=== PATIENT | female | born 1965 | race Caucasian/White ===

== ENCOUNTER 2019-03-25 14:55 | Emergency (ER) | payer OTHER ==
[2019-03-25 15:06] VITALS: TEMP 98.8; BMI 27.4
--- NOTE | 2019-03-25 15:09 | PDOC ---
History of Present Illness <Glory Hernandez - Last Filed: 03/25/19 17:01> - General History Source: Patient Exam Limitations: No Limitations - History of Present Illness Initial Comments: Pt is a 53 yo F, with no significant PMH, who presents with complaints of persistent epigastric discomfort. Pt states she frequently gets this symptom every few months, which is normally improved after relief of her constipation. These symptoms began with menopause, but is concerned "she may be having a heart attack". Pt does endorse drinking coffee more than usual lately. She states her constipation is improving and that her BMs are becoming softer. PT denies any fevers/chills, headache, vision changes, syncope, chest pain, palpitations, SOB, nausea/vomiting, urinary symptoms, or leg swelling. Allergies: NKDA PCP: Juliet (pt has appointment in 3 days with PCP). Social: Pt denies any cigarette, alcohol, or drug use. Pt denies any recent travel or sick contacts. 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 Family: no relevant history. 03/25/19 16:52 <Maddy Conley - Last Filed: 03/25/19 18:28> - General Chief Complaint: Chest Pain Stated Complaint: CHEST TIGHTNESS, CONSTIPATION Time Seen by Provider: 03/25/19 14:59 Past History <Glory Hernandez - Last Filed: 03/25/19 17:01> - Travel Traveled outside of the country in the last 30 days: No Close contact w/someone who was outside of country & ill: No - Past Medical History COPD: No - Suicide/Smoking/Psychosocial Hx Smoking History: Never smoked Have you smoked in the past 12 months: No Information on smoking cessation initiated: No Hx Alcohol Use: No <Maddy Conley - Last Filed: 03/25/19 18:28> - Past Medical History Allergies/Adverse Reactions: Allergies Allergy/AdvReac Type Severity Reaction Status Date / Time No Known Drug Allergies Allergy Verified 03/25/19 15:03 lactose AdvReac Verified 03/25/19 16:14 Home Medications: Ambulatory Orders NK [No Known Home Medication] 03/25/19 Review of Systems - Review of Systems Able to Perform ROS?: Yes Is the patient limited Vietnamese proficient: No Constitutional: Yes: Weight Stable. No: Chills, Diaphoresis, Fever, Loss of Appetite, Malaise, Weakness HEENTM: No: Blurred Vision, Double Vision, Nose Congestion, Throat Pain, Throat Swelling, Difficulty Swallowing Respiratory: No: Cough, Orthopnea, Shortness of Breath Cardiac (ROS): No: Chest Pain, Edema, Irregular Heart Rate, Lightheadedness, Palpitations, Syncope, Chest Tightness ABD/GI: Yes: See HPI, Constipated, Abdominal cramping (epigastric "tightness"). No: Diarrhea, Nausea, Poor Appetite, Poor Fluid Intake, Vomiting, Indigestion : No: Burning, Dysuria, Frequency, Hematuria, Pain, Urgency Musculoskeletal: No: Back Pain, Joint Pain, Muscle Pain, Muscle Weakness Integumentary: No: Bruising, Rash Neurological: No: Headache, Numbness, Paresthesia, Weakness, Unsteady Gait, Dizziness Psychiatric: Yes: Other (on vacation, has been consuming more coffee than usual) . No: Sleep Pattern Change, Change in Appetite Endocrine: No: Increased Urine, Change in Weight Hematologic/Lymphatic: No: Anemia, Blood Clots, Easy Bleeding, Easy Bruising All Other Systems: Reviewed and Negative <Maddy Conley - Last Filed: 03/25/19 18:28> *Physical Exam - Vital Signs Last Vital Signs Temp Pulse Resp BP Pulse Ox 98.8 F 112 H 20 130/82 100 03/25/19 14:55 03/25/19 14:55 03/25/19 14:55 03/25/19 14:55 03/25/19 14:55 <Glory Hernandez - Last Filed: 03/25/19 17:01> - Vital Signs Last Vital Signs Temp Pulse Resp BP Pulse Ox 98.8 F 112 H 20 130/82 100 03/25/19 14:55 03/25/19 14:55 03/25/19 14:55 03/25/19 14:55 03/25/19 14:55 - Physical Exam Comments: Pt not tachycardic on exam (80s-90s), pt afebrile. Pt in NAD, but very anxious with pressured speech. Normal body habitus. Pt alert and oriented x3. 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 No midline spinal tenderness, step-offs, or crepitus. Head normocephalic, atraumatic. Eyes PERRLA, EOMI. Oropharynx without erythema or exudates, no LAD b/l. No nasal congestion, hearing intact. Clear heart sounds, S1/S2, no JVD, b/l pedal edema, or heart murmur. Clear lung sounds, no respiratory distress, wheezes, crackles, or accessory muscle use. No abdominal or CVA tenderness to palpation, no rebound, no guarding. Abdomen soft, non-distended, and with normoactive bowel sounds. Skin without jaundice or rash. 03/25/19 16:02 <Maddy Conley - Last Filed: 03/25/19 18:28> Heart Score/ECG Review - History History: Slightly suspicious - Electrocardiogram EKG: Normal - Age Age: 45-65 - Risk Factors Based on the list above the patient has:: No risk factors known - Troponin Troponin: </= normal limit - Score Heart Score - Total: 1 <Maddy Conley - Last Filed: 03/25/19 18:28> ED Treatment Course - LABORATORY CBC & Chemistry Diagram: 03/25/19 15:35 03/25/19 15:35 - ADDITIONAL ORDERS Additional order review: Laboratory Results 03/25/19 03/25/19 03/25/19 15:35 15:35 15:35 PT with INR 14.0 H INR 1.26 H Sodium 138 Potassium 4.0 Chloride 103 Carbon Dioxide 26 Anion Gap 9 BUN 11.0 Creatinine 0.8 Est GFR (CKD-EPI)AfAm 96.19 Est GFR (CKD-EPI)NonAf 83.00 Random Glucose 102 Calcium 9.6 Magnesium 2.0 Total Bilirubin 0.6 AST 22 ALT 24 Alkaline Phosphatase 44 L Creatine Kinase 78 Troponin I < 0.03 Total Protein 7.4 Albumin 4.4 03/25/19 15:35 RBC 4.58 MCV 89.8 MCHC 33.3 RDW 13.0 MPV 9.9 Neutrophils % 75.2 Lymphocytes % 17.4 Monocytes % 6.4 Eosinophils % 0.3 Basophils % 0.7 <Glory Hernandez - Last Filed: 03/25/19 17:01> - LABORATORY CBC & Chemistry Diagram: 03/25/19 15:35 03/25/19 15:35 <Maddy Conley - Last Filed: 03/25/19 18:28> Medical Decision Making - Medical Decision Making Pt was seen at bedside, also will be seen by attending Dr. Hernandez. Pt presenting with complaints of persistent epigastric discomfort 2/2 constipation. Pt is concerned that "she may be having a heart attack". Will evaluate for ACS vs electrolyte imbalances vs thyroid dysfunction. 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 Will continue to reassess pt and monitor for symptomatic improvement. ECG: Sinus tachycardia (HR 106, WI 134, QRS 74, QTc 446). No TWIs or significant ST segment changes. No prior ECG for comparison. 03/25/19 16:05 CBC, CMP WNL Trop <.03 with no EKG changes Tachycardia improved 80s-90s on exam Pt continues to refuse acid cable splicer assistant/tylenol or other measures for control of her discomfort. Pending TSH, placed order for follow-up call Chest x-ray with no acute pathology. Considering normal lab results and imaging, pt can be discharged to home with follow-up. Pt has PCP f/u appointment scheduled on Thursday. Strict return precautions provided with pt understanding. 03/25/19 18:24 <Maddy Conley - Last Filed: 03/25/19 18:28> *DC/Admit/Observation/Transfer - Discharge Dispostion Decision to Admit order: No <Glory Hernandez - Last Filed: 03/25/19 17:01> - Discharge Dispostion Decision to Admit order: No <Maddy Conley - Last Filed: 03/25/19 18:28> Diagnosis at time of Disposition: Chest pain Qualifiers: Chest pain type: precordial pain Qualified Code(s): R07.2 - Precordial pain - Discharge Dispostion Disposition: HOME Condition at time of disposition: Good - Referrals Referrals: Judy Noe [Primary Care Provider] - - Patient Instructions Printed Discharge Instructions: DI for Chest Pain Additional Instructions: you came to the ED for chest pain. this pain is unlikely to be caused by a heart attack. In the ED, we checked and EKG and blood work, which were normal. You should return to the ED for worsening chest pain or shortness of breath, pain with fever, other new or worsening symptoms. Make sure that you follow up with your primary care doctor within one week. - Post Discharge Activity
[2019-03-25 16:21] LABS: INR 1.26 (0.82-1.09)
[2019-03-25 16:31] LABS: ALBUMIN 4.4 g/dl (3.4-5.0); BILIRUBIN,TOTAL 0.6 mg/dl (0.2-1); CALCIUM 9.6 mg/dl (8.5-10); CREATININE 0.8 mg/dl (0.55-1.3); TOT PROT 7.4 g/dl (6.4-8.2)
[2019-03-25 16:34] LABS: BASO % 0.7 % (0-2.0); EOS % 0.3 % (0-4.5); HEMATOCRIT 41.1 % (32.4-45.2); HEMOGLOBIN 13.7 GM/dl (10.7-15.3); LYMPH % 17.4 % (8-40); MCHC 33.3 g/dl (32.0-36.0); MEAN CELL VOLUME 89.8 fl (80-96); MEAN PLT VOLUME 9.9 fl (7.5-11.1); MONO % 6.4 % (3.8-10.2); NEUT % 75.2 % (42.8-82.8); PLATELET COUNT 242 K/MM3 (134-434); RBC 4.58 M/mm3 (3.60-5.2); WHITE BLOOD COUNT 6.7 K/mm3 (4.0-10.8)
--- NOTE | 2019-03-25 17:16 | PDOC ---
Attending Attestation - Resident Resident Name: Maddy Conley - HPI HPI: 03/25/19 17:08 Pt prsents to the ED complaining of a three day history of intermittent epigastric discomfort, accompanied by hot flashes, constipation "high blood pressure". Patient states that her constipation improved with dietary modification, but the epigastric discomfort continued. She is concerned that she is having a "heart attack" and thus presented to the ED. - Physicial Exam PE: 03/25/19 17:16 Agree with resident exam. Gen: alert, NAD CV: rrr no m/r/g Pulm: CTA b/l abdomen: soft, non tender, non distended NEuro: alert and oriented x 3, normal mood and affect, no acute distress - Medical Decision Making 03/25/19 17:18 Pt presents to the ED complaining of epigastric discomfort. No abdominal tenderness. EKG and cardiac enzymes are normal. Tachycardia has resolved. Pain is unlikely to be ACS. Will discharge home with instructions to follow up with her PMD and to return for worsening symptoms.
[2019-03-25 17:26] VITALS: BP 110/78; PULSE 88
--- NOTE | 2019-03-27 11:40 | EKG ---
Test Reason : Blood Pressure : / mmHG Vent. Rate : 106 BPM Atrial Rate : 106 BPM P-R Int : 134 ms QRS Dur : 074 ms QT Int : 336 ms P-R-T Axes : 068 022 051 degrees QTc Int : 446 ms SINUS TACHYCARDIA POSSIBLE LEFT ATRIAL ENLARGEMENT ANTEROSEPTAL INFARCT , AGE UNDETERMINED ABNORMAL ECG NO PREVIOUS ECGS AVAILABLE Confirmed by BHUPENDRA ARGUELLES MD ([id number]) on 03/27/2019 11:40:37 AM Referred By: MD DR GRAF Confirmed By:BHUPENDRA ARGUELLES MD
== END 2019-03-25 17:30 | disposition home or self-care (01) ==
LOC: FER 14:55
DX: R07.2 Precordial pain (principal)
CPT/HCPCS: 36415; 71046-TC-FY; 80053; 82550; 83735; 84443; 84484; 85025; 85610; 93005; 99285-25